=== PATIENT | female | born 1960 | race Caucasian/White ===

== ENCOUNTER 2021-05-16 10:07 | Day surgery (SDC) | payer OTHER ==
[~2021-05-16] VITALS: Ht 168 cm; Wt 91.0 kg
[~2021-05-16 10:07] MED LIST: ASPIRIN CHEWABL81 MG PO; ASPIRIN EC81 MG PO; CALCIUM 600 +1 EAC4 PO; CATALYN PO; CELEBREX200 MG PO; CLEARLAX17 GM PO; DIGESTIVE ADVA1 EACH PO; LASIX20 MG PO; MAGNESIUM500 MG PO; OMEPRAZOLE40 MG PO; PERCOCET 5-3251 EACH PO; PREMARIN0.625 MG PO; PRINIVIL10 MG PO; STOOL SOFTENER100 M1 PO; SYNTHROID50 MCG PO; TURMERIC 450-51 EACH PO; VITAMIN D325 MC3 PO
[2021-05-17 06:16] LABS: BASOPHIL 0.5 % (0-2); EOSINOPHIL 0.2 % (0-5); HCT 33.9 % (37.0-47.0); HGB 11.1 g/dl (12.5-16.0); MCH 30.4 pg (25.0-31.0); MCHC 32.7 g/dL (32.0-36.0); MCV 92.9 fL (78.0-100.0); MONOCYTE 7.5 % (0-12); MPV 11.3 fL (6.0-9.5); NEUTROPHIL 81.2 % (41-80); NRBC 0; PLT 198 K/uL (150-400); RBC 3.65 M/uL (4.20-5.40); WBC 12.5 K/uL (4.0-10.5)
[2021-05-17 06:33] LABS: BUN/CREAT RATIO (CALC) 24.6 RATIO; CREATININE 0.61 mg/dL (0.51-0.95)
[2021-05-17] MEDS ORDERED: FEOSOL325 MG PO (08:48)
[2021-05-17] MEDS ORDERED: ASPIRIN81 MG PO (08:48)
[2021-05-17] MEDS ORDERED: ZOFRAN4 M1 PO (08:56)
--- NOTE | 2021-05-17 09:13 | NUR ---
MET WITH PT. SHE REQUESTS KORT TO HOME. PT HAS A ROLLING WALKER. HER DAUGHTER WILL BE ASSISTING HER DURING HER RECOVERY. PT. SIGNED CHOICE FORM.
[2021-05-17] MEDS ORDERED: NORCO 5-325 TA1 EACH PO (09:17)
== END 2021-05-17 12:10 | disposition home or self-care (01) ==
LOC: FAS 10:07 → FMS 11:38 → FAS 12:00
PROVIDERS: Orthopaedic Surgery
DX: M17.12 Unilateral primary osteoarthritis, left knee (principal); I10 Essential (primary) hypertension; E03.9 Hypothyroidism, unspecified; K21.9 Gastro-esophageal reflux disease without esophagitis; K59.09 Other constipation; Z88.5 Allergy status to narcotic agent; Z79.82 Long term (current) use of aspirin; Z79.891 Long term (current) use of opiate analgesic
CPT/HCPCS: 36415; 73560; 80048; 85025; 86850; 86900; 86901; 94010; 94760; 94762; 97110; 97116; 97161; 97165; 97530-GP; 97535; C1713; C1776; J0171; J0697; J1100; J1170; J1885; J2250; J2270; J2405; J2704; J2795; J3010; J7120